=== PATIENT | female | born 1995 | race Asian ===

== ENCOUNTER 2017-06-04 18:25 | Inpatient (IN) | payer SELFPAY ==
[~2017-06-04] VITALS: Ht 2347 cm; Wt 77.7 kg
[2017-06-04 21:38] LABS: HEMATOCRIT 45.1 % (36.0-46.0); MCH 28.6 PG (29.0-34.0); MCHC 33.3 G/DL (30.0-36.0); MCV 85.9 FL (83-99); PLATELET COUNT 383 K/uL (156-360); RBC DIS.WIDTH-CV 11.8 % (11.8-14.6); RBC DIS.WIDTH-SD 36.9 % (39-53); RED BLOOD COUNT 5.25 M/uL (3.80-5.20)
[2017-06-04 21:49] LABS: CHLORIDE 106 mEq/L (99-109); POTASSIUM 3.8 mEq/L (3.7-5.4); SODIUM 143 mEq/L (136-147)
[2017-06-04 21:50] LABS: GLUCOSE 97 mg/dL (70-99)
[2017-06-04 21:52] LABS: ANION GAP 14 MEQ/L (2-14)
[2017-06-04 21:54] LABS: SERUM ETHYL ALCOHOL < 10 mg/dL
[2017-06-04 21:55] LABS: UREA NITROGEN (BUN) 8 mg/dL (9-23)
[2017-06-04 22:00] LABS: GFR ESTIMATE (CALCULATED) > 59 mL/min/
[2017-06-04 22:03] LABS: QUANTITATIVE HCG < 4.0 MIU/ML
[2017-06-05 01:58] VITALS: BP 137/76
[2017-06-05 07:49] VITALS: BP 116/58
[2017-06-05 15:23] VITALS: BP 111/59
[2017-06-06 07:48] VITALS: BP 114/74
[2017-06-06 15:45] VITALS: BP 104/57
[2017-06-07 07:37] VITALS: BP 118/70
[2017-06-07 16:22] VITALS: BP 114/56
[2017-06-08 07:38] VITALS: BP 100/50
[2017-06-08] MEDS ORDERED: FLUOXETINE HCL10 MG PO (09:34)
== END 2017-06-08 11:24 | disposition home or self-care (01) | DRG 882 ==
LOC: EME 18:25 → 1WEST 23:29 → EDOF 23:29 → ENRESERV 06-05 01:31 → 1WEST 06-05 01:51
DX: F43.23 Adjustment disorder with mixed anxiety and depressed mood (principal); F41.0 Panic disorder [episodic paroxysmal anxiety]; R45.851 Suicidal ideations; E66.9 Obesity, unspecified; Z68.31 Body mass index [BMI] 31.0-31.9, adult
CPT/HCPCS: 80048; 84702; 85027; 90839; 97150 GO; 97166 GO; 99281; 99285; G0480